=== PATIENT | male | born 1990 | race Two or more races ===

== ENCOUNTER 2021-08-13 00:43 | Emergency (ER) | payer SELFPAY ==
[2021-08-13 02:23] LABS: HEMOGLOBIN 16.1 gm/dl (14.0-17.5); RED BLOOD COUNT 5.14 M/UL (4.20-5.50); WHITE BLOOD COUNT 22.8 K/UL (4.5-11.0)
[2021-08-13 02:46] LABS: BUN/CREATININE RATIO 16 (0-10)
[2021-08-13] MEDS ORDERED: ENDOCET 5-3251 EACH PO (04:51)
== END 2021-08-13 07:40 | disposition home or self-care (01) ==
LOC: ER1 00:43
PROVIDERS: Physician Assistant
DX: L51.9 Erythema multiforme, unspecified (principal); F17.210 Nicotine dependence, cigarettes, uncomplicated
CPT/HCPCS: 71045; 80053; 82550; 82553; 84484; 85025; 93005; 96374; 96375; 99283; J1200; J1885